=== PATIENT | female | born 1945 | race Caucasian/White ===

== ENCOUNTER 2017-04-09 09:16 | Inpatient (IN) | payer OTHER ==
[2017-04-09] VITALS (12 sets, daily range): BP systolic 72–153; BP diastolic 32–88
[~2017-04-09] VITALS: Ht 175.3 cm; Wt 61.5 kg
[2017-04-09 09:56] LABS: BASE EXCESS -10.2 mEq/L (-3 to +3); BICARBONATE 20.8 mEq/L (22-26); CARBOXY HGB 1.6 % (0-5); METHEMOGLOBIN 1.1 % (0-1.5); PCO2 67 mm Hg (35-45); PO2 449 mm Hg (80-100)
[2017-04-09 09:58] LABS: COMMENTS - BLOOD GASES A+C+; DEVICE VENT; FI02 100 %; MECHANICAL RATE 18 resp/min; MODE AC/VC; PEEP 10 CM/H20; SITE LR; TIDAL VOLUME 450 ML; TOTAL RESP RATE 18 resp/min
[2017-04-09 09:59] LABS: BASOPHIL (%) 0.3 % (0-1); EOSINOPHIL (%) 0 % (0-5); HEMATOCRIT 50.8 % (36.0-46.0); IMMATURE GRANULOCYTE (%) 3.6 % (0.0-0.7); LYMPHOCYTE (%) 12.1 % (15-42); MCH 30.1 PG (29.0-34.0); MCHC 31.5 G/DL (30.0-36.0); MCV 95.5 FL (83-99); MONOCYTE (%) 9.3 % (3-12); MONOCYTE COUNT 0.7 K/uL (0-0.8); NEUTROPHIL (%) 74.7 % (45-76); NEUTROPHIL COUNT 5.9 K/uL (1.8-6.4); NRBC (%) 0.3 /100 WBC (0-0); PLATELET COUNT 197 K/uL (156-360); RBC DIS.WIDTH-CV 12.9 % (11.8-14.6); RED BLOOD COUNT 5.32 M/uL (3.80-5.20)
[2017-04-09 10:01] LABS: PTT 35.8 SEC (25-37)
[2017-04-09 10:03] LABS: AMYLASE 259 IU/L (1-118); CHLORIDE 87 mEq/L (99-109); POTASSIUM 5.4 mEq/L (3.7-5.4); SODIUM 133 mEq/L (136-147)
[2017-04-09 10:05] LABS: GLUCOSE 100 mg/dL (70-99)
[2017-04-09 10:08] LABS: SERUM ETHYL ALCOHOL < 10 mg/dL
[2017-04-09 10:09] LABS: CREATININE 2.3 mg/dL (0.6-1.3); GFR ESTIMATE (CALCULATED) 22 mL/min/
[2017-04-09 10:10] LABS: UREA NITROGEN (BUN) 43 mg/dL (9-23)
[2017-04-09 10:12] LABS: LIPASE 20 U/L (1.0-51.0)
[2017-04-09 10:14] LABS: TROP-I INTERPRETATION POSITIVE
[2017-04-09 10:15] LABS: TROPONIN-I 2.91 ng/mL (0.0-0.30)
[2017-04-09 10:20] LABS: APPEARANCE CLOUDY ((CLEAR)); BILIRUBIN NEGATIVE; BLOOD LARGE; COLOR AMBER ((YELLOW)); GLUCOSE (STRIP) NEGATIVE; KETONES 5; LEUKOCYTES NEGATIVE; NITRITE NEGATIVE; PROTEIN (STRIP) >=500; SPECIFIC GRAVITY 1.019 (1.000-1.030); UROBILINOGEN 0.2 MG/DL (0.2-1.0)
[2017-04-09 10:24] LABS: AMPHETAMINE NEGATIVE (500 ng/mL); BARBITURATES NEGATIVE (200 ng/mL); BENZODIAZEPINES NEGATIVE (150 ng/mL); BUPRENORPHINE NEGATIVE (10 ng/mL); COCAINE NEGATIVE (150 ng/mL); METHADONE NEGATIVE (200 ng/mL); METHAMPHETAMINE NEGATIVE (500 ng/mL); OPIATES (MORPHINE) NEGATIVE (100 ng/mL); OXYCODONE NEGATIVE (100 ng/mL); PHENCYCLIDINE NEGATIVE (25 ng/mL); PROPOXYPHENE NEGATIVE (300 ng/mL); THC CANNABINOIDS NEGATIVE (50 ng/mL); TRICYCLIC ANTIDEPRESSANTS NEGATIVE (300 ng/mL)
[2017-04-09 10:40] LABS: BACTERIA 1+ /HPF; COARSE GRANULAR CASTS 0-5 /LPF; EPITHELIAL CELLS 1+ /HPF; MUCUS 1+ /LPF; UCUL ADDED? YES
[2017-04-09 11:46] LABS: BASE EXCESS -3.3 mEq/L (-3 to +3); BICARBONATE 24.4 mEq/L (22-26); CARBOXY HGB 1.6 % (0-5); METHEMOGLOBIN 1.6 % (0-1.5)
[2017-04-09 11:47] LABS: DEVICE VENT; FI02 40 %; MECHANICAL RATE 22 resp/min; MODE ACVC; PCO2 52 mm Hg (35-45); PEEP 10 CM/H20; PO2 86 mm Hg (80-100); SITE RR; TOTAL RESP RATE 22 resp/min; pH 7.28 (7.35-7.45)
[2017-04-09 11:48] LABS: COMMENTS - BLOOD GASES C+
[2017-04-09 11:51] LABS: BASE EXCESS -3.3 mEq/L (-3 to +3); BICARBONATE 25.7 mEq/L (22-26); CARBOXY HGB 1.4 % (0-5); METHEMOGLOBIN 1.6 % (0-1.5); PCO2 60 mm Hg (35-45); PO2 44 mm Hg (80-100)
[2017-04-09 11:52] LABS: COMMENTS - BLOOD GASES C+; FI02 40 %; MECHANICAL RATE 22 resp/min; MODE ACVC; PEEP 10 CM/H20; SITE CENTRAL LINE; TOTAL RESP RATE 22 resp/min
[2017-04-09 11:53] LABS: pH 7.24 (7.35-7.45)
[2017-04-09 12:44] LABS: BASOPHIL (%) 0.5 % (0-1); BASOPHIL COUNT 0.1 K/uL (0-0.1); EOSINOPHIL (%) 0 % (0-5); HEMOGLOBIN 17.7 G/DL (11.9-15.5); IMMATURE GRANULOCYTE (%) 1.4 % (0.0-0.7); LYMPHOCYTE (%) 7.9 % (15-42); LYMPHOCYTE COUNT 0.8 K/uL (1.0-2.8); MCH 29.5 PG (29.0-34.0); MCHC 32.2 G/DL (30.0-36.0); MCV 91.7 FL (83-99); MONOCYTE (%) 2.7 % (3-12); MONOCYTE COUNT 0.3 K/uL (0-0.8); NEUTROPHIL (%) 87.5 % (45-76); NEUTROPHIL COUNT 8.5 K/uL (1.8-6.4); PLATELET COUNT 232 K/uL (156-360); RBC DIS.WIDTH-CV 12.9 % (11.8-14.6); RBC DIS.WIDTH-SD 43.7 % (39-53); WHITE BLOOD COUNT 9.8 K/uL (4.1-10.2)
[2017-04-09 13:32] LABS: THYROTROPIN (TSH) 2.2 MIU/L (0.4-5.5)
[2017-04-09 14:09] LABS: ACETAMINOPHEN (TYLENOL) < 10 MCG/ML (10-30); ALBUMIN 3.5 G/DL (3.2-4.8); ALKALINE PHOSPHATASE 123 IU/L (3-129); ALT (GPT) 584 IU/L (3-49); AST (GOT) 739 IU/L (2-34); CHLORIDE 86 MEQ/L (99-109); CREATININE 2.2 MG/DL (0.6-1.3); GFR ESTIMATE (CALCULATED) 23 mL/min/; GLUCOSE 120 mg/dL (70-99); HDL CHOLESTEROL 64 MG/DL (Desirable>=50); HIGH-SENS C-REACTIVE PROTEIN 4.62 MG/DL (0.02-0.20); LDL CHOLESTEROL 112 mg/dL (Desirable<100); MAGNESIUM 2.1 mg/dl (1.3-2.7); NON-HDL CHOLESTEROL 150 mg/dL (Desirable<160); PHOSPHORUS 8.5 mg/dL (2.5-4.9); POTASSIUM 5.1 MEQ/L (3.7-5.4); SALICYLATE < 3.0 MG/DL (15-30); SODIUM 134 MEQ/L (136-147); TOTAL BILIRUBIN 0.8 MG/DL (0.0-1.0); TOTAL CHOLESTEROL 214 mg/dL (Desirable<200); TOTAL PROTEIN 6.1 G/DL (6.4-8.3); TRIGLYCERIDES 189 MG/DL (Normal: <150); UREA NITROGEN (BUN) 46 mg/dL (9-23)
[2017-04-09 14:12] LABS: LYME DISEASE SEROLOGY SCREEN NEGATIVE (NEGATIVE)
[2017-04-09 15:48] LABS: TROP-I INTERPRETATION POSITIVE; TROPONIN-I 4.16 ng/mL (0.0-0.30)
[2017-04-09 20:25] LABS: BASOPHIL (%) 0.1 % (0-1); EOSINOPHIL (%) 0 % (0-5); HEMATOCRIT 51.1 % (36.0-46.0); HEMOGLOBIN 16.2 G/DL (11.9-15.5); IMMATURE GRANULOCYTE (%) 0.8 % (0.0-0.7); LYMPHOCYTE (%) 3.9 % (15-42); LYMPHOCYTE COUNT 0.6 K/uL (1.0-2.8); MCH 29.2 PG (29.0-34.0); MCHC 31.7 G/DL (30.0-36.0); MCV 92.1 FL (83-99); MONOCYTE (%) 4.4 % (3-12); MONOCYTE COUNT 0.6 K/uL (0-0.8); NEUTROPHIL (%) 90.8 % (45-76); NEUTROPHIL COUNT 12.9 K/uL (1.8-6.4); PLATELET COUNT 192 K/uL (156-360); RBC DIS.WIDTH-CV 13.2 % (11.8-14.6); RED BLOOD COUNT 5.55 M/uL (3.80-5.20); WHITE BLOOD COUNT 14.2 K/uL (4.1-10.2)
[2017-04-09 20:36] LABS: TROP-I INTERPRETATION POSITIVE; TROPONIN-I 5.65 ng/mL (0.0-0.30)
[2017-04-10] VITALS: BP 94/49
[2017-04-10 02:00] VITALS: BP 94/49
[2017-04-10 02:48] LABS: INTER. NORMALIZED RATIO 1.3
[2017-04-10 03:02] LABS: PTT 119.2 SEC (25-37)
[2017-04-10 05:59] LABS: HEMATOCRIT 49.7 % (36.0-46.0); HEMOGLOBIN 15.9 G/DL (11.9-15.5); MCV 90.5 FL (83-99); PLATELET COUNT 182 K/uL (156-360); RBC DIS.WIDTH-CV 13.5 % (11.8-14.6); RBC DIS.WIDTH-SD 45.7 % (39-53); RED BLOOD COUNT 5.49 M/uL (3.80-5.20); WHITE BLOOD COUNT 14.9 K/uL (4.1-10.2)
[2017-04-10 06:09] LABS: INTER. NORMALIZED RATIO 1.3
[2017-04-10 06:11] LABS: PTT 99.6 SEC (25-37)
[2017-04-10 06:46] LABS: TROP-I INTERPRETATION POSITIVE; TROPONIN-I 9.04 ng/mL (0.0-0.30)
[2017-04-10 07:13] LABS: ALBUMIN 2.5 G/DL (3.2-4.8); AST (GOT) 715 IU/L (2-34); CREATININE 2.6 MG/DL (0.6-1.3); GFR ESTIMATE (CALCULATED) 19 mL/min/; GLUCOSE 134 mg/dL (70-99); SODIUM 136 MEQ/L (136-147); UREA NITROGEN (BUN) 52 mg/dL (9-23)
[2017-04-10 07:16] LABS: CHLORIDE 96 MEQ/L (99-109)
[2017-04-10 07:17] LABS: TOTAL BILIRUBIN 0.5 MG/DL (0.0-1.0); TOTAL PROTEIN 4.5 G/DL (6.4-8.3)
[2017-04-10 07:19] LABS: ALKALINE PHOSPHATASE 73 IU/L (3-129)
[2017-04-10 08:00] VITALS: BP 102/53
[2017-04-10 08:40] LABS: ALT (GPT) 583 IU/L (3-49)
[2017-04-10 08:53] LABS: INTER. NORMALIZED RATIO 1.3
[2017-04-10 09:19] LABS: PTT 127.9 SEC (25-37)
[2017-04-10 12:00] VITALS: BP 93/52
[2017-04-10 16:58] LABS: PROCALCITONIN+ 0.94 ng/mL (<0.10)
[2017-04-12 13:47] LABS: ACETYLCHOLINE RECP BIND ABY+ <0.30 nmol/L (<=0.30)
== END 2017-04-10 13:52 | DRG 871 ==
LOC: EME 09:16 → 4WEST 09:59 → EDOF 09:59 → 4WEST 09:59 → ENRESERV 10:08 → CANRESERV 10:08 → ENRESERV 10:15 → 4WEST 10:50
PROVIDERS: Emergency Medicine; Internal Medicine; Internal Medicine Cardiovascular Disease; Internal Medicine Critical Care Medicine; Obstetrics & Gynecology
PROC: 5A12012 Performance of Cardiac Output, Single, Manual (ICD-10-PCS; principal; 2017-04-09)
PROC: 02HV33Z Insertion of Infusion Device into Superior Vena Cava, Percutaneous Approach (ICD-10-PCS; 2017-04-09)
PROC: 5A1945Z Respiratory Ventilation, 24-96 Consecutive Hours (ICD-10-PCS; 2017-04-09)
PROC: 04HY32Z Insertion of Monitoring Device into Lower Artery, Percutaneous Approach (ICD-10-PCS; 2017-04-10)
DX: A41.9 Sepsis, unspecified organism (principal); R65.21 Severe sepsis with septic shock; J15.211 Pneumonia due to Methicillin susceptible Staphylococcus aureus; I46.8 Cardiac arrest due to other underlying condition; G93.1 Anoxic brain damage, not elsewhere classified; J96.02 Acute respiratory failure with hypercapnia; I21.A1 Myocardial infarction type 2; R40.20 Unspecified coma; Z51.5 Encounter for palliative care; N17.9 Acute kidney failure, unspecified; E83.51 Hypocalcemia; E86.0 Dehydration; E87.1 Hypo-osmolality and hyponatremia; E87.2 Acidosis; E87.5 Hyperkalemia; D75.1 Secondary polycythemia; R13.10 Dysphagia, unspecified; R63.4 Abnormal weight loss; R40.2430 Glasgow coma scale score 3-8, unspecified time; M62.82 Rhabdomyolysis
CPT/HCPCS: 36600; 70450; 71045; 76700; 80047; 80048; 80053; 80061; 81003; 82150; 82533 91; 82550 91; 82668 90; 82803; 82948; 83605; 83690; 83735; 83880; 84100; 84145 90; 84238 90; 84443; 84484; 85025; 85025 91; 85027; 85610; 85730; 86141; 86618; 86850; 86900; 86901; 87040; 87070; 87077; 87086; 87147; 87186; 87205; 87641; 92950; 93005; 93306; 94002; 94003; 94640; 94640 76; 99202; 99281; 99285; C1751; C9113; G0480; J0171; J0696; J1160; J1720; J3370; J3411; J7030; J7050; J7070